=== PATIENT | male | born 1995 | race Caucasian/White ===

== ENCOUNTER 2020-04-01 18:03 | Day surgery (SDC) | payer OTHER ==
--- NOTE | 2020-04-01 18:20 | PDOC ---
Rapid Medical Evaluation Time Seen by Provider: 04/01/20 18:19 Medical Evaluation: 04/01/20 18:19 I have performed a brief in-person evaluation of this patient. The patient presents with a chief complaint of: RLQ pain today. + nausea, no fever or change in BM Pertinent physical exam findings:stable I have ordered the following:labs The patient will proceed to the ED for further evaluation. Discharge Disposition - Diagnosis RLQ abdominal pain - Referrals - Patient Instructions - Post Discharge Activity
--- NOTE | 2020-04-01 18:34 | PDOC ---
History of Present Illness - General Chief Complaint: Pain, Acute Stated Complaint: ABD PAIN/NAUSEA Time Seen by Provider: 04/01/20 18:19 - History of Present Illness Initial Comments: 04/01/20 18:33 25 y/o M w/o CM presents foe evaluation of RLQ pain x 1 d Past History - Medical History Allergies/Adverse Reactions: Allergies Allergy/AdvReac Type Severity Reaction Status Date / Time No Known Allergies Allergy Verified 04/01/20 18:59 Home Medications: Ambulatory Orders NK [No Known Home Medication] 04/01/20 COPD: No - Immunization History Immunization Up to Date: No - Psycho-Social/Smoking History Smoking History: Current every day smoker Information on smoking cessation initiated: No - Substance Abuse Hx (Audit-C & DAST Scrn) How often the patient has a drink containing alcohol: Monthly or less Number of drinks the patient has on a typical day: 1 or 2 How often the patient has six or more drinks on one occasion: Never Score: In Men: 4 or > Positive; In Women: 3 or > Positive: 1 Screen Result (Pos requires Nsg. Audit-10AR): Negative In the last yr the pt used illegal drug/Rx for NonMed reason: No Score: Yes response is considered Positive: 0 Screen Result (Positive result requires Nsg. DAST-10): Negative Review of Systems - Review of Systems Constitutional: No: Fever ABD/GI: Yes: Nausea. No: Constipated, Diarrhea, Vomiting *Physical Exam - Vital Signs Last Vital Signs Temp Pulse Resp BP Pulse Ox 98.8 F 77 20 111/75 100 04/01/20 18:17 04/01/20 18:17 04/01/20 18:17 04/01/20 18:17 04/01/20 18:17 - Physical Exam General Appearance: Yes: Nourished, Appropriately Dressed. No: Apparent Distress HEENT: positive: Normal Voice, Symmetrical Neck: positive: Supple Respiratory/Chest: positive: Normal Breath Sounds. negative: Respiratory Distress Cardiovascular: positive: Regular Rhythm Gastrointestinal/Abdominal: positive: Tender, Other (RLQ Tenderness all other areas are non tender) Musculoskeletal: positive: Normal Inspection Extremity: positive: Normal Inspection Integumentary: positive: Normal Color, Dry, Warm Neurologic: positive: medical clerical assistant II-XII NML intact, Fully Oriented, Alert ED Treatment Course - LABORATORY CBC & Chemistry Diagram: 04/01/20 18:40 04/01/20 18:38 Medical Decision Making - Medical Decision Making 04/01/20 21:12 called for admission 04/01/20 22:00 2nd call placed 04/01/20 22:06 Dr Adames will have hospitalisyt admit NPO surgery tomorrow 04/01/20 22:09 Hospitailist called for admission, Discharge - Discharge Information Problems reviewed: Yes Clinical Impression/Diagnosis: RLQ abdominal pain, Appendicitis Condition: Stable - Admission Yes - Follow up/Referral Referrals: Amber Kessler MD [Primary Care Provider] - - Patient Discharge Instructions - Post Discharge Activity
[2020-04-01 19:05] LABS: BASO % 0.1 % (0-2.0); EOS % 0.7 % (0-4.5); HEMATOCRIT 44.3 % (35.4-49); HEMOGLOBIN 14.8 GM/dL (11.7-16.9); LYMPH % 11.6 % (8-40); MCH 29.5 pg (25.7-33.7); MCHC 33.5 g/dl (32.0-35.9); MEAN PLT VOLUME 7.8 fl (7.5-11.1); MONO % 5.9 % (3.8-10.2); NEUT % 81.7 % (42.8-82.8); PLATELET COUNT 300 K/MM3 (134-434); RBC 5.04 M/mm3 (4.00-5.60); RDW 13.8 % (11.9-15.9)
[2020-04-01 19:11] LABS: PH,URINE 6.5 (5.0-8.0); URINE APPEARANCE CLEAR; URINE BILIRUBIN NEGATIVE (NEGATIVE); URINE COLOR YELLOW; URINE GLUCOSE (UA) NEGATIVE (NEGATIVE); URINE KETONE TRACE (NEGATIVE); URINE LEUK ESTERASE NEGATIVE (NEGATIVE); URINE NITRITE NEGATIVE (NEGATIVE); URINE PROTEIN NEGATIVE (NEGATIVE)
[2020-04-01 19:44] LABS: ALBUMIN 4.5 g/dl (3.4-5.0); BILIRUBIN,TOTAL 1.2 mg/dL (0.2-1); CALCIUM 9.8 mg/dL (8.5-10.1); CREATININE 0.9 mg/dL (0.55-1.3); POTASSIUM 4.4 mmol/L (3.5-5.1); TOT PROT 7.5 g/dl (6.4-8.2)
--- NOTE | 2020-04-01 20:15 | PDOC ---
*Physical Exam - Vital Signs Last Vital Signs Temp Pulse Resp BP Pulse Ox 98.8 F 77 20 111/75 100 04/01/20 18:17 04/01/20 18:17 04/01/20 18:17 04/01/20 18:17 04/01/20 18:17 ED Treatment Course - LABORATORY CBC & Chemistry Diagram: 04/01/20 18:40 04/01/20 18:38 - ADDITIONAL ORDERS Additional order review: Laboratory Results 04/01/20 04/01/20 18:40 18:38 Sodium 138 Potassium 4.4 Chloride 105 Carbon Dioxide 27 Anion Gap 6 L BUN 9.0 Creatinine 0.9 Est GFR (CKD-EPI)AfAm 137.10 Est GFR (CKD-EPI)NonAf 118.29 Random Glucose 92 Calcium 9.8 Total Bilirubin 1.2 H AST 15 ALT 26 Alkaline Phosphatase 66 Total Protein 7.5 Albumin 4.5 Lipase 47 L Urine Color Yellow Urine Appearance Clear Urine pH 6.5 Ur Specific [place] 1.029 Urine Protein Negative Urine Glucose (UA) Negative Urine Ketones Trace H Urine Blood Negative Urine Nitrite Negative Urine Bilirubin Negative Urine Urobilinogen 1.0 Ur Leukocyte Esterase Negative 04/01/20 18:40 RBC 5.04 MCV 88.0 MCHC 33.5 RDW 13.8 MPV 7.8 Neutrophils % 81.7 Lymphocytes % 11.6 Monocytes % 5.9 Eosinophils % 0.7 Basophils % 0.1 Medical Decision Making - Medical Decision Making 04/01/20 20:09 Patient seen by the advanced practice provider under my supervision. Ancillary testing reviewed as necessary. I agree with plan as outlined by the advanced practice provider. Discharge - Discharge Information Problems reviewed: Yes Clinical Impression/Diagnosis: RLQ abdominal pain, Appendicitis Condition: Stable - Follow up/Referral - Patient Discharge Instructions - Post Discharge Activity
[2020-04-01] MEDS ORDERED: ACETAMINOPHEN 1000 MG/100 ML VIAL (NON FORMULARY) IVPB ONE (22:27)
--- NOTE | 2020-04-01 22:27 | HP ---
CHIEF COMPLAINT: RLQ abd pain PCP: Elzbieta HISTORY OF PRESENT ILLNESS: Knvg Rivera is a 25 yr old M, no significant medical condition presented to ED with RLQ abd pain that started today with associated nausea. pt denies vomiting, fever, chills, sob, chest pain, headache, dizziness, diarrhea. ER course was notable for: (1) CT abd appendicitis (2) WBC 16 (3) Recent Travel: none PAST MEDICAL HISTORY: none PAST SURGICAL HISTORY: Social History: Smoking:denies tobacco use Alcohol:denies Drugs: occasional weed Allergies No Known Allergies Allergy (Verified 04/01/20 18:59) HOME MEDICATIONS: Home Medications Medication Instructions Recorded NK [No Known Home Medication] 04/01/20 REVIEW OF SYSTEMS CONSTITUTIONAL: Absent: fever, chills, diaphoresis, generalized weakness, malaise, loss of appetite, weight change HEENT: Absent: rhinorrhea, nasal congestion, throat pain, throat swelling, difficulty swallowing, mouth swelling, ear pain, eye pain, visual changes CARDIOVASCULAR: Absent: chest pain, syncope, palpitations, irregular heart rate, lightheadedness, peripheral edema RESPIRATORY: Absent: cough, shortness of breath, dyspnea with exertion, orthopnea, wheezing, stridor, hemoptysis GASTROINTESTINAL:+ RLQ abd pain, +nausea. Absent: abdominal distension, vomiting, diarrhea, constipation, melena, hematochezia GENITOURINARY: Absent: dysuria, frequency, urgency, hesitancy, hematuria, flank pain, genital pain MUSCULOSKELETAL: Absent: myalgia, arthralgia, joint swelling, back pain, neck pain SKIN: Absent: rash, itching, pallor HEMATOLOGIC/IMMUNOLOGIC: Absent: easy bleeding, easy bruising, lymphadenopathy, frequent infections ENDOCRINE: Absent: unexplained weight gain, unexplained weight loss, heat intolerance, cold intolerance NEUROLOGIC: Absent: headache, focal weakness or paresthesias, dizziness, unsteady gait, seizure, mental status changes, bladder or bowel incontinence PSYCHIATRIC: Absent: anxiety, depression, suicidal or homicidal ideation, hallucinations. PHYSICAL EXAMINATION Vital Signs - 24 hr 04/01/20 18:17 Temperature 98.8 F Pulse Rate 77 Respiratory 20 Rate Blood Pressure 111/75 O2 Sat by Pulse 100 Oximetry (%) GENERAL: Awake, alert, and fully oriented, in no acute distress. HEAD: Normal with no signs of trauma. EYES: Pupils equal, round and reactive to light, extraocular movements intact, sclera anicteric, conjunctiva clear. No lid lag. EARS, NOSE, THROAT: Ears normal, nares patent, oropharynx clear without exudates. Moist mucous membranes. NECK: Normal range of motion, supple without lymphadenopathy, JVD, or masses. LUNGS: Breath sounds equal, clear to auscultation bilaterally. No wheezes, and no crackles. No accessory muscle use. HEART: Regular rate and rhythm, normal S1 and S2 without murmur, rub or gallop. ABDOMEN: Soft, nontender, not distended, normoactive bowel sounds, no guarding, no rebound, no masses. No hepatomegaly or splenomegaly. MUSCULOSKELETAL: Normal range of motion at all joints. No bony deformities or tenderness. No CVA tenderness. UPPER EXTREMITIES: 2+ pulses, warm, well-perfused. No cyanosis. No clubbing. No peripheral edema. LOWER EXTREMITIES: 2+ pulses, warm, well-perfused. No calf tenderness. No peripheral edema. NEUROLOGICAL: Cranial nerves II-XII intact. Normal speech. Normal gait. PSYCHIATRIC: Cooperative. Good eye contact. Appropriate mood and affect. SKIN: Warm, dry, normal turgor, no rashes or lesions noted, normal capillary refill. Laboratory Results - last 24 hr 04/01/20 04/01/20 04/01/20 18:38 18:40 18:40 WBC 16.0 H RBC 5.04 Hgb 14.8 Hct 44.3 MCV 88.0 MCH 29.5 MCHC 33.5 RDW 13.8 Plt Count 300 MPV 7.8 Absolute Neuts (auto) 13.1 H Neutrophils % 81.7 Lymphocytes % 11.6 Monocytes % 5.9 Eosinophils % 0.7 Basophils % 0.1 Nucleated RBC % 0 Sodium 138 Potassium 4.4 Chloride 105 Carbon Dioxide 27 Anion Gap 6 L BUN 9.0 Creatinine 0.9 Est GFR (CKD-EPI)AfAm 137.10 Est GFR (CKD-EPI)NonAf 118.29 Random Glucose 92 Calcium 9.8 Total Bilirubin 1.2 H AST 15 ALT 26 Alkaline Phosphatase 66 Total Protein 7.5 Albumin 4.5 Lipase 47 L Urine Color Yellow Urine Appearance Clear Urine pH 6.5 Ur Specific [place] 1.029 Urine Protein Negative Urine Glucose (UA) Negative Urine Ketones Trace H Urine Blood Negative Urine Nitrite Negative Urine Bilirubin Negative Urine Urobilinogen 1.0 Ur Leukocyte Esterase Negative Blood Type Antibody Screen 04/01/20 18:40 WBC RBC Hgb Hct MCV MCH MCHC RDW Plt Count MPV Absolute Neuts (auto) Neutrophils % Lymphocytes % Monocytes % Eosinophils % Basophils % Nucleated RBC % Sodium Potassium Chloride Carbon Dioxide Anion Gap BUN Creatinine Est GFR (CKD-EPI)AfAm Est GFR (CKD-EPI)NonAf Random Glucose Calcium Total Bilirubin AST ALT Alkaline Phosphatase Total Protein Albumin Lipase Urine Color Urine Appearance Urine pH Ur Specific [place] Urine Protein Urine Glucose (UA) Urine Ketones Urine Blood Urine Nitrite Urine Bilirubin Urine Urobilinogen Ur Leukocyte Esterase Blood Type B POSITIVE Antibody Screen Negative ASSESSMENT/PLAN: Kvng Rivera is a 25 yr old M, no medical condition admitted for Admitting Diagnosis Appendicitis #Appendicitis -WBC 16 -CT abd/pelvis- appendicitis w/associated intraluminal appendicloth -will give one dose zosyn -IVF -NPO -pain mgt, dilaudid 1mg q 6hrs prn -Surgery paged in ED- sx for tomorrow -PT/INR in AM -COVID swabbed in ED Full Code Dispo: requires in patient treatment Visit type - Emergency Visit Emergency Visit: Yes Care time: The patient presented to the Emergency Department on the above date and was hospitalized for further evaluation of their emergent condition. - New Patient This patient is new to me today: Yes Date on this admission: 04/01/20 - Critical Care Critical Care patient: No
[2020-04-01] MEDS: SODIUM CHLORIDE 1,000 ML IV SCH (22:36)
[2020-04-01] MEDS ORDERED: HYDROmorphone HCl 2 MG/ML VIAL IVPUSH PRN (22:38)
[2020-04-01] MEDS ORDERED: PIPERACILLIN/TAZOB 3.375 GM 3.375 GM in DEXTROSE 5%-WATER - 50 ML IVPB ONE (22:40)
[2020-04-01] MEDS ORDERED: ONDANSETRON 4 MG/2 ML VIAL IVPUSH PRN (22:42)
[2020-04-01] MEDS ORDERED: ACETAMINOPHEN INJECTION 100 ML IVPB ONE (23:01)
[2020-04-02] MEDS ORDERED: PIPERACILLIN/TAZOBACTAM 3.375 GM VIAL IVPB ONE ×3 (00:25→17:02)
[2020-04-02] MEDS ORDERED: DEXTROSE 5%-WATER - 50 ML IVPB ONE ×3 (00:26→17:03)
[2020-04-02 00:38] VITALS: BMI 29.0
[2020-04-02 07:21] LABS: BASO % 0.1 % (0-2.0); EOS % 1.7 % (0-4.5); HEMATOCRIT 42.7 % (35.4-49); HEMOGLOBIN 14.5 GM/dL (11.7-16.9); LYMPH % 21.4 % (8-40); MCHC 34.1 g/dl (32.0-35.9); MEAN PLT VOLUME 8.2 fl (7.5-11.1); MONO % 9.2 % (3.8-10.2); NEUT % 67.6 % (42.8-82.8); PLATELET COUNT 283 K/MM3 (134-434); RBC 4.85 M/mm3 (4.00-5.60); WHITE BLOOD COUNT 9.4 K/mm3 (4.0-10.0)
[2020-04-02 07:38] LABS: BLOOD UREA NITROGEN 8.2 mg/dL (7-18); CREATININE 0.8 mg/dL (0.55-1.3); POTASSIUM 3.9 mmol/L (3.5-5.1)
[2020-04-02 07:39] LABS: ALBUMIN 3.7 g/dl (3.4-5.0); BILIRUBIN,TOTAL 2.2 mg/dL (0.2-1); MAGNESIUM 2.3 mg/dL (1.8-2.4); TOT PROT 6.3 g/dl (6.4-8.2)
[2020-04-02 07:44] LABS: INR 1.03 (0.83-1.09); PROTHROMBIN TIME (PATIENT) 12.2 SEC (9.7-13.0)
[2020-04-02] MEDS ORDERED: PIPERACILLIN/TAZOB 3.375 GM 3.375 GM in DEXTROSE 5%-WATER - 50 ML IVPB ONE (08:42)
--- NOTE | 2020-04-02 09:50 | PN ---
Progress Note (short form) - Note Progress Note: surgery 25m admitted with uncompliated appendicitis. wbc normalized with abx and no fever. awaiting covid results sent yesterday. will proceed with surgery vs medical management pending results.
--- NOTE | 2020-04-02 10:11 | PN ---
Physical Exam: SUBJECTIVE: Patient seen and examined at the bedside. tells me that his RLQ abdominal pain began yesterday. currently denies any nausea/vomiting. RLQ pain now controlled on pain medications. 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 He denies any other medical history, and does not take ASA, only tylenol for pain prn OBJECTIVE: Patient is a 25 year old male with no significant past medical history who comes to the ED on 04/01/2020 with RLQ abd pain that started 04/01/[address] scan shows acute appendicitis with intraluminal appendicolith. Surgery following. covid 19 pending. covid status: covid 19 pending. patient is asymptomatic Vital Signs Period Temp Pulse Resp BP Sys/Michel Pulse Ox Last 24 Hr 98 F-99 F 70-77 16-20 105-122/64-75 100-100 GENERAL: The patient is awake, alert, and fully oriented, in no acute distress. HEAD: Normal with no signs of trauma. EYES: PERRL, extraocular movements intact, sclera anicteric, conjunctiva clear. No ptosis. ENT: Ears normal, nares patent, oropharynx clear without exudates, moist mucous membranes. NECK: Trachea midline, full range of motion, supple. LUNGS: Breath sounds equal, clear to auscultation bilaterally HEART: Regular rate and rhythm ABDOMEN: Soft, nontender, nondistended, normoactive bowel sounds EXTREMITIES: 2+ pulses, warm, well-perfused, no edema. NEUROLOGICAL: Normal speech, gait not observed. PSYCH: Normal mood, normal affect. SKIN: Warm, dry, normal turgor, no rashes or lesions noted Laboratory Results - last 24 hr 04/01/20 04/01/20 04/01/20 18:38 18:40 18:40 WBC 16.0 H RBC 5.04 Hgb 14.8 Hct 44.3 MCV 88.0 MCH 29.5 MCHC 33.5 RDW 13.8 Plt Count 300 MPV 7.8 Absolute Neuts (auto) 13.1 H Neutrophils % 81.7 Lymphocytes % 11.6 Monocytes % 5.9 Eosinophils % 0.7 Basophils % 0.1 Nucleated RBC % 0 PT with INR INR Sodium 138 Potassium 4.4 Chloride 105 Carbon Dioxide 27 Anion Gap 6 L BUN 9.0 Creatinine 0.9 Est GFR (CKD-EPI)AfAm 137.10 Est GFR (CKD-EPI)NonAf 118.29 Random Glucose 92 Calcium 9.8 Magnesium Total Bilirubin 1.2 H AST 15 ALT 26 Alkaline Phosphatase 66 Total Protein 7.5 Albumin 4.5 Lipase 47 L Urine Color Yellow Urine Appearance Clear Urine pH 6.5 Ur Specific [place] 1.029 Urine Protein Negative Urine Glucose (UA) Negative Urine Ketones Trace H Urine Blood Negative Urine Nitrite Negative Urine Bilirubin Negative Urine Urobilinogen 1.0 Ur Leukocyte Esterase Negative Blood Type Antibody Screen 04/01/20 04/02/20 04/02/20 18:40 06:35 06:35 WBC 9.4 RBC 4.85 Hgb 14.5 Hct 42.7 MCV 88.0 MCH 30.0 MCHC 34.1 RDW 14.0 Plt Count 283 MPV 8.2 Absolute Neuts (auto) 6.4 Neutrophils % 67.6 Lymphocytes % 21.4 D Monocytes % 9.2 Eosinophils % 1.7 D Basophils % 0.1 Nucleated RBC % 0 PT with INR 12.20 INR 1.03 Sodium Potassium Chloride Carbon Dioxide Anion Gap BUN Creatinine Est GFR (CKD-EPI)AfAm Est GFR (CKD-EPI)NonAf Random Glucose Calcium Magnesium Total Bilirubin AST ALT Alkaline Phosphatase Total Protein Albumin Lipase Urine Color Urine Appearance Urine pH Ur Specific [place] Urine Protein Urine Glucose (UA) Urine Ketones Urine Blood Urine Nitrite Urine Bilirubin Urine Urobilinogen Ur Leukocyte Esterase Blood Type B POSITIVE Antibody Screen Negative 04/02/20 06:35 WBC RBC Hgb Hct MCV MCH MCHC RDW Plt Count MPV Absolute Neuts (auto) Neutrophils % Lymphocytes % Monocytes % Eosinophils % Basophils % Nucleated RBC % PT with INR INR Sodium 141 Potassium 3.9 Chloride 108 H Carbon Dioxide 25 Anion Gap 7 L BUN 8.2 Creatinine 0.8 Est GFR (CKD-EPI)AfAm 143.90 Est GFR (CKD-EPI)NonAf 124.16 Random Glucose 88 Calcium 9.0 Magnesium 2.3 Total Bilirubin 2.2 H AST 12 L ALT 21 Alkaline Phosphatase 59 Total Protein 6.3 L Albumin 3.7 Lipase Urine Color Urine Appearance Urine pH Ur Specific [place] Urine Protein Urine Glucose (UA) Urine Ketones Urine Blood Urine Nitrite Urine Bilirubin Urine Urobilinogen Ur Leukocyte Esterase Blood Type Antibody Screen Active Medications Generic Name Dose Route Start Last Admin Trade Name Freq PRN Reason Stop Dose Admin Hydromorphone HCl 1 mg 04/01/20 22:38 04/02/20 06:19 Dilaudid Vial - IVPUSH 1 mg Q6H PRN Administration PAIN LEVEL 7 - 10 Sodium Chloride 1,000 mls @ 75 mls/hr 04/01/20 22:15 04/01/20 22:36 Normal Saline - IV 75 mls/hr ASDIR RAF Administration Ondansetron HCl 4 mg 04/01/20 22:42 Zofran Injection IVPUSH Q4H PRN NAUSEA AND/OR VOMITING ASSESSMENT/PLAN: Problem List - Problems (1) Appendicitis Assessment/Plan: per CT scan, surgery following Code(s): K37 - UNSPECIFIED APPENDICITIS (2) RLQ abdominal pain Assessment/Plan: in the setting of acute appendicitis. for possible surgical intervention today on dialudid, bowel rest. maintain NPO status. Code(s): R10.31 - RIGHT LOWER QUADRANT PAIN (3) COVID-19 Assessment/Plan: pending, no symptoms and no known sick contacts Code(s): U07.1 - COVID POSITIVE (4) DVT prophylaxis Assessment/Plan: SCD incentive spirometer early ambulation protonix Code(s): Z29.9 - ENCOUNTER FOR PROPHYLACTIC MEASURES, UNSPECIFIED Visit type - Emergency Visit Emergency Visit: Yes ED Registration Date: 04/02/20 Care time: The patient presented to the Emergency Department on the above date and was hospitalized for further evaluation of their emergent condition. - New Patient This patient is new to me today: Yes Date on this admission: 04/02/20 - Critical Care Critical Care patient: No - Discharge Referral Referred to [facility] Med P.C.: No
--- NOTE | 2020-04-02 10:36 | CON.ID ---
Consult Consult Specialty:: infectious diseases Referred by:: Myriam Reason for Consultation:: ac appendicitis - History of Present Illness Chief Complaint: abd pain History of Present Illness: 25 yr old M, no significant medical condition admitted with RLQ abd pain that started today with associated nausea. pt denies vomiting, fever, chills, sob, chest pain, headache, dizziness, diarrhea. was worked up and found to have ac appendicitis surgery on board patient sometimes smokes hookah and smokes cigarettes - History Source History Provided By: Patient Limitations to Obtaining History: No Limitations - Smoking History Smoking history: Current every day smoker Have you smoked in the past 12 months: Yes Home Medications - Allergies Allergies/Adverse Reactions: Allergies Allergy/AdvReac Type Severity Reaction Status Date / Time No Known Allergies Allergy Verified 04/01/20 18:59 - Home Medications Home Medications: Ambulatory Orders NK [No Known Home Medication] 04/01/20 Review of Systems - Review of Systems Constitutional: reports: No Symptoms Eyes: reports: No Symptoms HENT: reports: No Symptoms Neck: reports: No Symptoms Cardiovascular: reports: No Symptoms Respiratory: reports: No Symptoms Gastrointestinal: reports: Abdominal Pain Genitourinary: reports: No Symptoms Integumentary: reports: No Symptoms Neurological: reports: No Symptoms Endocrine: reports: No Symptoms Hematology/Lymphatic: reports: No Symptoms Psychiatric: reports: No Symptoms Physical Exam Vital Signs: Vital Signs Temperature 98 F 04/02/20 05:56 Pulse Rate 73 04/02/20 05:56 Respiratory Rate 20 04/02/20 05:56 Blood Pressure 105/64 04/02/20 05:56 O2 Sat by Pulse Oximetry (%) 100 04/02/20 00:41 Constitutional: Yes: Calm, Mild Distress Eyes: Yes: Conjunctiva Clear HENT: Yes: Atraumatic Neck: Yes: Supple, Trachea Midline Cardiovascular: Yes: Regular Rate and Rhythm Respiratory: Yes: Regular, CTA Bilaterally Gastrointestinal: Yes: Hypoactive Bowel Sounds, Tenderness Musculoskeletal: Yes: WNL Extremities: Yes: WNL Neurological: Yes: Alert, Oriented Psychiatric: Yes: Alert, Oriented Labs: CBC, BMP 04/02/20 06:35 04/02/20 06:35 Imaging - Results Cat Scan: Report Reviewed, Image Reviewed Assessment/Plan this patient with no medical problems now coming with ac appendicits surgery on board we will continue zosyn monitor for fevers and wbc rest as per the team
[2020-04-02] MEDS: PIPERACILLIN/TAZOB 3.375 GM 3.375 GM in DEXTROSE 5%-WATER - 50 ML IVPB SCH (18:25)
--- NOTE | 2020-04-02 19:59 | CONS ---
DATE OF CONSULTATION: 04/02/2020 REASON FOR CONSULTATION: Acute appendicitis. REASON FOR CONSULTATION: This is an emergency consultation requested by the emergency room physician. BRIEF HISTORY: This is a 25-year-old male without significant past medical history presents with 1-day history of right lower quadrant abdominal pain. He presented to the [facility] emergency room where a CAT scan of his abdomen and pelvis which was consistent with uncomplicated acute appendicitis. COVID testing was sent on April 01. He was admitted to the hospital, placed on intravenous Zosyn antibiotic. Overnight his white blood cell count returned to normal and his symptoms significantly improved, and he has had no fever. Plans are being made for surgery pending his COVID status. PAST MEDICAL HISTORY: Negative. 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 SOCIAL HISTORY: Negative for alcohol. Negative for tobacco. ALLERGIES: No known drug allergies. FAMILY HISTORY: Noncontributory. REVIEW OF SYSTEMS: General: Denies fatigue or malaise. Cardiac: Denies chest pain or palpitations. Respiratory: Denies shortness of breath or wheeze. Gastrointestinal: Currently no nausea, no vomiting, no abdominal pain, no diarrhea, no blood in his stool. Genitourinary: Denies dysuria. Musculoskeletal: Denies joint pain. Psychiatric: Denies anxiety, depression, or hearing voices. PHYSICAL EXAMINATION: General: This is an overweight 25-year-old male in no distress. Vital signs: He is afebrile. His vital signs are stable. HEENT: Head is normocephalic. Sclerae anicteric. Neck: Supple. Chest: Clear. Abdomen: Soft. He has mild right lower quadrant tenderness without rebound or guarding. Extremities: No edema. Skin: He has a well-healed surgical scar in the lower midline. LABORATORY: Review of his laboratory: His white blood cell count is 9.4 without a shift. His chemistries are unremarkable with a mildly elevated total bilirubin. His COVID test from April 01 is pending as of 6:55 p.m. at the time of this dictation. IMAGING: As stated in HPI. ASSESSMENT: This is a 25-year-old male with right lower quadrant pain, right lower quadrant tenderness, resolving leukocytosis on Zosyn antibiotic, with CAT scan evidence of uncomplicated appendicitis with an appendicolith located within the appendix. Patient currently is being managed medically with good response. Ideally would proceed with surgical management; however, the COVID status needs to be ascertained, as surgery in the setting of COVID can lead to respiratory failure and thromboembolic events leading to . At this point, would continue medical management. If the COVID test comes back negative, would proceed with surgical management at that time. If it is positive, would continue medical management with plans for an interval appendectomy. Risks and benefits of surgery have been explained to patient in detail. These are including but not limited to possibility of conversion to open, possible injury to viscera or bladder, possibility of blood loss requiring blood transfusion, possible future obstruction, possible future hernia, plus a multitude of medical risks including but not limited to cardiac, neurologic, pulmonary, and vascular complications, even . Patient understands these risks, and he is agreeable to surgery if his COVID test is negative. He also understands there is a possibility of a false negative COVID test as well. DO GIGI [id number]
[2020-04-03] MEDS ORDERED: PIPERACILLIN/TAZOBACTAM 3.375 GM VIAL IVPB ONE ×3 (00:53→17:31)
[2020-04-03] MEDS ORDERED: DEXTROSE 5%-WATER - 50 ML IVPB ONE ×3 (00:54→17:31)
[2020-04-03] MEDS: SODIUM CHLORIDE 1,000 ML IV SCH ×3 (00:58→17:44)
[2020-04-03] MEDS: PIPERACILLIN/TAZOB 3.375 GM 3.375 GM in DEXTROSE 5%-WATER - 50 ML IVPB SCH ×3 (00:59→17:42)
[2020-04-03 07:17] LABS: BASO % 0.1 % (0-2.0); EOS % 1.4 % (0-4.5); HEMATOCRIT 42.5 % (35.4-49); HEMOGLOBIN 14.4 GM/dL (11.7-16.9); LYMPH % 21.1 % (8-40); MCH 29.8 pg (25.7-33.7); MCHC 33.9 g/dl (32.0-35.9); MEAN PLT VOLUME 8.2 fl (7.5-11.1); MONO % 6.1 % (3.8-10.2); NEUT % 71.3 % (42.8-82.8); PLATELET COUNT 273 K/MM3 (134-434); RBC 4.83 M/mm3 (4.00-5.60); RDW 14.2 % (11.9-15.9)
[2020-04-03 07:42] LABS: ALBUMIN 3.7 g/dl (3.4-5.0); CALCIUM 8.8 mg/dL (8.5-10.1); CREATININE 0.8 mg/dL (0.55-1.3); MAGNESIUM 2.4 mg/dL (1.8-2.4); POTASSIUM 4.1 mmol/L (3.5-5.1)
[2020-04-03 07:43] LABS: TOT PROT 6.6 g/dl (6.4-8.2)
--- NOTE | 2020-04-03 11:26 | PN ---
Physical Exam: SUBJECTIVE: Patient seen and examined at the bedside. RLQ pain improved, mild tenderness now. OBJECTIVE: Patient is a 25 year old male with no significant past medical history who comes to the ED on 04/01/2020 with RLQ abd pain that started 04/01/[address] scan shows acute appendicitis with intraluminal appendicolith. Surgery following. covid 19 pending. covid status: covid 19 pending. patient is asymptomatic Vital Signs Period Temp Pulse Resp BP Sys/Michel Pulse Ox Last 24 Hr 97.4 F-98.5 F 67-75 18-20 106-120/51-60 98-100 GENERAL: The patient is awake, alert, and fully oriented, in no acute distress. HEAD: Normal with no signs of trauma. EYES: PERRL, extraocular movements intact, sclera anicteric, conjunctiva clear. No ptosis. ENT: Ears normal, nares patent, oropharynx clear without exudates, moist mucous membranes. NECK: Trachea midline, full range of motion, supple. LUNGS: Breath sounds equal, clear to auscultation bilaterally HEART: Regular rate and rhythm ABDOMEN: Soft, nontender, nondistended, normoactive bowel sounds EXTREMITIES: 2+ pulses, warm, well-perfused, no edema. NEUROLOGICAL: Normal speech, gait not observed. PSYCH: Normal mood, normal affect. SKIN: Warm, dry, normal turgor, no rashes or lesions noted Laboratory Results - last 24 hr 04/03/20 04/03/20 06:30 06:30 WBC 8.0 RBC 4.83 Hgb 14.4 Hct 42.5 MCV 88.0 MCH 29.8 MCHC 33.9 RDW 14.2 Plt Count 273 MPV 8.2 Absolute Neuts (auto) 5.7 Neutrophils % 71.3 Lymphocytes % 21.1 Monocytes % 6.1 Eosinophils % 1.4 Basophils % 0.1 Nucleated RBC % 0 Sodium 140 Potassium 4.1 Chloride 109 H Carbon Dioxide 23 Anion Gap 8 BUN 9.0 Creatinine 0.8 Est GFR (CKD-EPI)AfAm 143.90 Est GFR (CKD-EPI)NonAf 124.16 Random Glucose 63 L Calcium 8.8 Magnesium 2.4 Total Bilirubin 2.0 H AST 13 L ALT 20 Alkaline Phosphatase 56 Total Protein 6.6 Albumin 3.7 Active Medications Generic Name Dose Route Start Last Admin Trade Name Freq PRN Reason Stop Dose Admin Hydromorphone HCl 1 mg 04/01/20 22:38 04/02/20 06:19 Dilaudid Vial - IVPUSH 1 mg Q6H PRN Administration PAIN LEVEL 7 - 10 Sodium Chloride 1,000 mls @ 75 mls/hr 04/01/20 22:15 04/03/20 08:59 Normal Saline - IV 75 mls/hr ASDIR RAF Administration Piperacillin Sod/Tazobactam 50 mls @ 100 mls/hr 04/02/20 18:00 04/03/20 08:59 Sod 3.375 gm/ Dextrose IVPB 100 mls/hr Q8H-IV RAF Administration Protocol Ondansetron HCl 4 mg 04/01/20 22:42 Zofran Injection IVPUSH Q4H PRN NAUSEA AND/OR VOMITING ASSESSMENT/PLAN: Problem List - Problems (1) Appendicitis Assessment/Plan: per CT scan, surgery following possible surgery pending covid 19 results Code(s): K37 - UNSPECIFIED APPENDICITIS (2) RLQ abdominal pain Assessment/Plan: improved. in the setting of acute appendicitis. for possible surgical intervention today on dialudid, bowel rest. maintain NPO status. Code(s): R10.31 - RIGHT LOWER QUADRANT PAIN (3) COVID-19 Assessment/Plan: pending, no symptoms and no known sick contacts Code(s): U07.1 - COVID POSITIVE (4) DVT prophylaxis Assessment/Plan: SCD incentive spirometer early ambulation protonix Code(s): Z29.9 - ENCOUNTER FOR PROPHYLACTIC MEASURES, UNSPECIFIED (5) Leukocytosis Assessment/Plan: resolved afebirle. on zosyn Code(s): D72.829 - ELEVATED WHITE BLOOD CELL COUNT, UNSPECIFIED Visit type - Emergency Visit Emergency Visit: Yes ED Registration Date: 04/02/20 Care time: The patient presented to the Emergency Department on the above date and was hospitalized for further evaluation of their emergent condition. - New Patient This patient is new to me today: No - Critical Care Critical Care patient: No - Discharge Referral Referred to [facility] No
[2020-04-03] MEDS ORDERED: PANTOPRAZOLE SODIUM 40 MG in SODIUM CHLORIDE 100 ML IVPB SCH (11:30)
[2020-04-03] MEDS ORDERED: PANTOPRAZOLE SODIUM 40 MG VIAL IVPUSH SCH (11:45)
[2020-04-03] MEDS ORDERED: ONDANSETRON 4 MG/2 ML VIAL IVPUSH PRN ×2 (14:21→17:19)
[2020-04-03] MEDS ORDERED: DEXAMETHASONE SOD PHOSPHATE 4 MG/1 ML VIAL ONE (14:23)
[2020-04-03] MEDS ORDERED: MIDAZOLAM HCL 2 MG/2 ML SINGLE DOSE VIAL ONE ×2 (14:24→14:31)
[2020-04-03] MEDS ORDERED: EPHEDRINE SULFATE/0.9% NACL/PF 50 MG/10 ML SYRINGE NR ONE (14:24)
[2020-04-03] MEDS ORDERED: SUCCINYLCHOLINE CHLORIDE 200 MG/10 ML SYRINGE ONE (14:24)
[2020-04-03] MEDS ORDERED: ROCURONIUM BROMIDE 50 MG/5 ML SYRINGE ONE (14:24)
[2020-04-03] MEDS ORDERED: PROPOFOL 20 ML ONE ×2 (14:24→15:31)
[2020-04-03] MEDS ORDERED: LIDOCAINE HCL/PF 2% SDV 5ML VIAL ONE (14:25)
[2020-04-03] MEDS ORDERED: LACTATED RINGERS SOLUTION 1,000 ML IV SCH (14:30)
--- NOTE | 2020-04-03 14:39 | OP ---
Operative Note - Note: Operative Date: 04/03/20 Pre-Operative Diagnosis: acute appendicitis Operation: laparoscopic appendectomy, lavage Findings: inflamed, non perforated appendix Post-Operative Diagnosis: Same as Pre-op Surgeon: Jas Pierson Anesthesiologist/CHICKEN CLEANER: Vi Tovar Specimens Removed: appendix Estimated Blood Loss (mls): 10 Operative Report Dictated: Yes
[2020-04-03] MEDS ORDERED: morphine SULFATE 4 MG/ML VIAL IVPB PRN (14:40)
[2020-04-03] MEDS ORDERED: oxyCODONE HCL 5 MG TABLET PO PRN (14:40)
[2020-04-03] MEDS ORDERED: NEOSTIGMINE METHYLSULFATE 0.5 MG/ML - 10 ML MDV ONE (15:04)
[2020-04-03] MEDS ORDERED: GLYCOPYRROLATE 0.2 MG/1 ML VIAL ONE (15:04)
--- NOTE | 2020-04-03 15:04 | PN ---
Progress Note, Physician History of Present Illness: stable post op doing well no issues - Current Medication List Current Medications: Active Medications Fentanyl (Sublimaze Injection -) 25 mcg IVPUSH [id number] PRN PRN Reason: PAIN-PACU ORDER X 4 DOSES ONLY Stop: 04/04/20 14:20 Fentanyl (Sublimaze Injection -) 50 mcg IVPUSH [id number] PRN PRN Reason: PAIN-PACU ORDER X 4 DOSES ONLY Stop: 04/04/20 14:20 Hydromorphone HCl (Dilaudid Vial -) 1 mg IVPUSH Q6H PRN PRN Reason: PAIN LEVEL 7 - 10 Last Admin: 04/02/20 06:19 Dose: 1 mg Documented by: Sodium Chloride (Normal Saline -) 1,000 mls @ 75 mls/hr IV ASDIR RAF Last Admin: 04/03/20 08:59 Dose: 75 mls/hr Documented by: Piperacillin Sod/Tazobactam (Sod 3.375 gm/ Dextrose) 50 mls @ 100 mls/hr IVPB Q8H-IV RAF; Protocol Last Admin: 04/03/20 08:59 Dose: 100 mls/hr Documented by: Lactated Ringer's (Lactated Ringers Solution) 1,000 mls @ 75 mls/hr IV ASDIR RAF Morphine Sulfate (Morphine Injection -) 8 mg IVPB Q3H PRN PRN Reason: PAIN LEVEL 7 - 10 Ondansetron HCl (Zofran Injection) 4 mg IVPUSH Q4H PRN PRN Reason: NAUSEA AND/OR VOMITING Ondansetron HCl (Zofran Injection) 4 mg IVPUSH Q6H PRN PRN Reason: NAUSEA AND/OR VOMITING Stop: 04/04/20 14:20 Oxycodone HCl (Roxicodone -) 7.5 mg PO Q4H PRN PRN Reason: PAIN LEVEL 4 - 6 Pantoprazole Sodium (Protonix Iv) 40 mg IVPUSH DAILY [facility] Last Admin: 04/03/20 12:11 Dose: 40 mg Documented by: - Objective Vital Signs: Vital Signs Temperature 98 F 04/03/20 13:16 Pulse Rate 68 04/03/20 13:16 Respiratory Rate 20 04/03/20 13:16 Blood Pressure 145/80 04/03/20 13:16 O2 Sat by Pulse Oximetry (%) 98 04/03/20 09:00 Constitutional: Yes: No Distress, Calm Cardiovascular: Yes: S1, S2 Respiratory: Yes: Regular, CTA Bilaterally Gastrointestinal: Yes: Normal Bowel Sounds, Soft Musculoskeletal: Yes: WNL Extremities: Yes: WNL Wound/Incision: Yes: Clean/Dry Neurological: Yes: Other Labs: CBC, BMP 04/03/20 06:30 04/03/20 06:30 INR, PTT INR 1.03 (0.83-1.09) 04/02/20 06:35 Assessment/Plan Problem List - Problems (1) Appendicitis Code(s): K37 - UNSPECIFIED APPENDICITIS (2) RLQ abdominal pain Code(s): R10.31 - RIGHT LOWER QUADRANT PAIN (3) COVID-19 Code(s): U07.1 - COVID POSITIVE (5) Leukocytosis Code(s): D72.829 - ELEVATED WHITE BLOOD CELL COUNT, UNSPECIFIED post op stable will continue abx monitor wbc once stable will deescalte op findings noted
[2020-04-03] MEDS ORDERED: KETOROLAC TROMETHAMINE 30 MG/1 ML VIAL ONE (15:16)
--- NOTE | 2020-04-03 15:47 | PN ---
Progress Note (short form) - Note Progress Note: surgery s/p laparoscopic appendectomy. can likely be discharged tomorrow in morning off abx if tolerating liquids, ambulating, and voiding. no lifting for 2 weeks. ok to shower. regular diet at home. f/u in 2 weeks [phone]
[2020-04-04] MEDS ORDERED: PIPERACILLIN/TAZOBACTAM 3.375 GM VIAL IVPB ONE ×2 (02:33→09:32)
[2020-04-04] MEDS ORDERED: DEXTROSE 5%-WATER - 50 ML IVPB ONE ×2 (02:33→09:33)
[2020-04-04] MEDS: PIPERACILLIN/TAZOB 3.375 GM 3.375 GM in DEXTROSE 5%-WATER - 50 ML IVPB SCH ×2 (02:53→09:40)
[2020-04-04] MEDS: SODIUM CHLORIDE 1,000 ML IV SCH (03:05)
[2020-04-04 08:19] LABS: BASO % 0.1 % (0-2.0); HEMOGLOBIN 14.3 GM/dL (11.7-16.9); LYMPH % 16.9 % (8-40); MCH 29.5 pg (25.7-33.7); MCHC 34.1 g/dl (32.0-35.9); MEAN CELL VOLUME 86.4 fl (80-96); MEAN PLT VOLUME 8.1 fl (7.5-11.1); MONO % 4.8 % (3.8-10.2); NEUT % 78.2 % (42.8-82.8); PLATELET COUNT 297 K/MM3 (134-434); RBC 4.86 M/mm3 (4.00-5.60); RDW 13.9 % (11.9-15.9); WHITE BLOOD COUNT 9.5 K/mm3 (4.0-10.0)
[2020-04-04 08:47] LABS: ALBUMIN 3.4 g/dl (3.4-5.0); BILIRUBIN,TOTAL 1.2 mg/dL (0.2-1); BLOOD UREA NITROGEN 6.8 mg/dL (7-18); CALCIUM 8.9 mg/dL (8.5-10.1); CREATININE 0.8 mg/dL (0.55-1.3); MAGNESIUM 2.2 mg/dL (1.8-2.4); TOT PROT 6.4 g/dl (6.4-8.2)
[2020-04-04] MEDS ORDERED: PT OWN MED DRAWER 7, Y5N ONE (09:32)
[2020-04-04] MEDS ORDERED: PANTOPRAZOLE SODIUM 40 MG VIAL IVPUSH SCH (10:00)
--- NOTE | 2020-04-04 11:07 | DS ---
Physical Exam: SUBJECTIVE: Patient seen and examined. he denies any abdominal pain, no nausea or vomiting. voiding freely and had a BM today. denies any significant pain. only feels "sore" on surgical sites. He will take tylenol at home as needed. he is ambulating in room. OBJECTIVE: Patient is a 25 year old male with no significant past medical history who comes to the ED on 04/01/2020 with RLQ abd pain that started 04/01/[address] scan shows acute appendicitis with intraluminal appendicolith. s/p appendectomy on 04/03/2020, inflamed appendix found. covid 19 negative. Completed Zosyn, will send home on Augmentin 500mg BID x 5 days. patient f/u with Dr. Pierson as an outpatient. covid status: covid 19 pending. patient is asymptomatic Vital Signs Period Temp Pulse Resp BP Sys/Michel Pulse Ox Last 24 Hr 98 F-98.9 F 59-71 13-20 103-145/50-80 95-100 PHYSICAL EXAM GENERAL: The patient is awake, alert, and fully oriented, in no acute distress. HEAD: Normal with no signs of trauma. EYES: PERRL, extraocular movements intact, sclera anicteric, conjunctiva clear. No ptosis. ENT: Ears normal, nares patent, oropharynx clear without exudates, moist mucous membranes. NECK: Trachea midline, full range of motion, supple. LUNGS: Breath sounds equal, clear to auscultation bilaterally HEART: Regular rate and rhythm ABDOMEN: Soft, nontender, nondistended, normoactive bowel sounds - surgical sites c/d/i EXTREMITIES: 2+ pulses, warm, well-perfused, no edema. NEUROLOGICAL: Normal speech, gait not observed. PSYCH: Normal mood, normal affect. SKIN: Warm, dry, normal turgor, no rashes or lesions noted LABS Laboratory Results - last 24 hr 04/01/20 04/04/20 04/04/20 22:10 07:26 07:26 WBC 9.5 RBC 4.86 Hgb 14.3 Hct 42.0 MCV 86.4 MCH 29.5 MCHC 34.1 RDW 13.9 Plt Count 297 MPV 8.1 Absolute Neuts (auto) 7.5 Neutrophils % 78.2 Lymphocytes % 16.9 Monocytes % 4.8 Eosinophils % 0.0 D Basophils % 0.1 Nucleated RBC % 0 Sodium 139 Potassium 4.0 Chloride 107 Carbon Dioxide 22 Anion Gap 10 BUN 6.8 L Creatinine 0.8 Est GFR (CKD-EPI)AfAm 143.90 Est GFR (CKD-EPI)NonAf 124.16 Random Glucose 76 Calcium 8.9 Magnesium 2.2 Total Bilirubin 1.2 H AST 13 L ALT 20 Alkaline Phosphatase 51 Total Protein 6.4 Albumin 3.4 COVID-19 (TANESHA) Not detected HOSPITAL COURSE: Date of Admission:04/01/20 Date of Discharge: 04/04/20 Minutes to complete discharge: 45 Discharge Summary Problems reviewed: Yes Reason For Visit: APPENDICITIS Current Active Problems Appendicitis (Acute) COVID-19 (Acute) DVT prophylaxis (Acute) Leukocytosis (Acute) RLQ abdominal pain (Acute) Condition: Stable - Instructions Diet, Activity, Other Instructions: Discharge Instructions Post Operative Instructions Physical activity Resume your normal everyday activity as tolerated no heavy lifting or exercise until seen by your surgeon. You may walk unlimited amounts of and climb stairs. You may resume driving the car when you feel safe and comfortable behind the wheel and are no longer taking narcotic medications. Wound care You may shower 2 days after surgery but do not submerge the incisions. Do not a pply lotion or ointments to incisions. Diet There are no dietary restrictions. Eat healthy, high-fiber foods. Drink 6 to 8 glasses of liquid each day. This will assist in keeping your bowels are regular. Pain management You may take Tylenol or acetaminophen or Ibuprofen (for example, Motrin, Advil etc.) Any pain prescription medication ordered should be taken as prescribed for moderate to severe pain. Call Dr. Pierson for any of the following: Severe pain not relieved by medication Fever of 101 or higher Excessive bleeding or drainage on dressing Inability to urinate START taking Augmentin 500mg TWICE per day for 5 more days. If you experience any chest pain or shortness of breath please seek emergency treatment immediately. Call the office a post operative appointment - f/u in 2 weeks [phone] (Dr. Pierson) Referrals: Amber Kessler MD [Primary Care Provider] - Jas Pierson MD [Staff Physician] - Disposition: HOME - Home Medications Comprehensive Discharge Medication List: Ambulatory Orders Amoxicillin/Potassium Clav [Augmentin 500-125 Tablet] 1 each PO BID #10 tablet 04/04/20 Problem List - Problems (1) Appendicitis Assessment/Plan: s/p appendectomy 04/03/2020. outpatient follow up no abominal pain, tolerating diet. no nausea/or vomiting no calf pain, ambulating in room lungs clear, voiding freely and had BM today Code(s): K37 - UNSPECIFIED APPENDICITIS (2) RLQ abdominal pain Assessment/Plan: resolved Code(s): R10.31 - RIGHT LOWER QUADRANT PAIN (3) COVID-19 Assessment/Plan: negative Code(s): U07.1 - COVID POSITIVE (4) DVT prophylaxis Assessment/Plan: Code(s): Z29.9 - ENCOUNTER FOR PROPHYLACTIC MEASURES, UNSPECIFIED (5) Leukocytosis Assessment/Plan: resolved Code(s): D72.829 - ELEVATED WHITE BLOOD CELL COUNT, UNSPECIFIED This patient is new to me today: No Emergency Visit: Yes Care time: The patient presented to the Emergency Department on the above date and was hospitalized for further evaluation of their emergent condition. Critical Care patient: No - Discharge Referral Referred to [facility] No
--- NOTE | 2020-04-04 11:18 | PN ---
Progress Note, Physician History of Present Illness: stable no complaints intraop findings noted - Current Medication List Current Medications: Active Medications Piperacillin Sod/Tazobactam (Sod 3.375 gm/ Dextrose) 50 mls @ 100 mls/hr IVPB Q8H-IV RAF; Protocol Last Admin: 04/04/20 09:40 Dose: 100 mls/hr Documented by: Sodium Chloride (Normal Saline -) 1,000 mls @ 75 mls/hr IV ASDIR RAF Last Admin: 04/04/20 03:05 Dose: 75 mls/hr Documented by: Morphine Sulfate (Morphine Sulfate) 8 mg IVPB Q3H PRN PRN Reason: PAIN LEVEL 7 - 10 Ondansetron HCl (Zofran Injection) 4 mg IVPUSH Q4H PRN PRN Reason: NAUSEA AND/OR VOMITING Oxycodone HCl (Roxicodone -) 7.5 mg PO Q4H PRN PRN Reason: PAIN LEVEL 4 - 6 Last Admin: 04/03/20 20:18 Dose: 7.5 mg Documented by: Pantoprazole Sodium (Protonix Iv) 40 mg IVPUSH DAILY [facility] Last Admin: 04/04/20 09:40 Dose: 40 mg Documented by: - Objective Vital Signs: Vital Signs Temperature 98.4 F 04/04/20 05:00 Pulse Rate 65 04/04/20 05:00 Respiratory Rate 18 04/04/20 05:00 Blood Pressure 115/50 L 04/04/20 05:00 O2 Sat by Pulse Oximetry (%) 97 04/04/20 01:00 Constitutional: Yes: No Distress, Calm Cardiovascular: Yes: S1, S2 Respiratory: Yes: Regular, CTA Bilaterally Gastrointestinal: Yes: Soft, Hypoactive Bowel Sounds Musculoskeletal: Yes: WNL Extremities: Yes: WNL Wound/Incision: Yes: Clean/Dry Neurological: Yes: Alert, Oriented Psychiatric: Yes: Alert, Oriented Labs: CBC, BMP 04/04/20 07:26 04/04/20 07:26 INR, PTT INR 1.03 (0.83-1.09) 04/02/20 06:35 Assessment/Plan Problem List - Problems (1) Appendicitis Code(s): K37 - UNSPECIFIED APPENDICITIS (2) RLQ abdominal pain Code(s): R10.31 - RIGHT LOWER QUADRANT PAIN (3) COVID-19 Code(s): U07.1 - COVID POSITIVE (5) Leukocytosis Code(s): D72.829 - ELEVATED WHITE BLOOD CELL COUNT, UNSPECIFIED post op stable can change to oral augmentin for couple of days
[2020-04-04 12:05] VITALS: BP 125/68; PULSE 92; TEMP 98.8
--- NOTE | 2020-04-04 12:12 | PN ---
Progress Note (short form) - Note Progress Note: surgery pt seen and examined. feels well. tolerating diet, ambulating, and voiding. afebrile abd- soft, nt, nd, incisions clean Plan- surgically stable for d/c. no abx or narcotics. f/u in 2 weeks. [phone] ok to shower, regular diet, no lifting,
--- NOTE | 2020-04-04 15:00 | OP ---
DATE OF OPERATION: 04/03/2020 PREOPERATIVE DIAGNOSIS: Acute appendicitis. POSTOPERATIVE DIAGNOSIS: Acute appendicitis. PROCEDURE: Laparoscopic appendectomy, lavage. SURGEON: Jas Pierson DO ECONOMIC DEVELOPER: None. ANESTHESIOLOGIST: Vi Tovar MD SPECIMEN: Appendix. BLOOD LOSS: Minimal. DRAINS: None. DISPOSITION: Recovery room in stable condition. BRIEF HISTORY: This is a 25-year-old male who was admitted to [facility] with acute appendicitis. He was treated medically with good success, awaiting return of his COVID test. Once it was back and negative, he proceeds now for surgery. DESCRIPTION OF PROCEDURE: The patient was placed in a supine position. After general anesthesia was initiated, the abdomen was prepped and draped in sterile fashion. The patient was already on Zosyn antibiotic. Next, a supraumbilical incision was made with scalpel, used to go through skin and subcutaneous tissue. The fascia was lifted with a Diego clamp and incised vertically. The peritoneum was entered bluntly. A 0 Vicryl stitch was placed across the fascial defect and used to secure the Edyta trocar. Pneumoperitoneum was then created, followed by insertion of a 5-mm 30-degree laparoscope. Two 5-mm trocars were placed, one suprapubic, one left lower quadrant. Attention was turned towards the right lower quadrant and the appendix was seen. It was thick and inflamed at its tip and nonperforated. A window was made in the space. The LigaSure device was used to divide the mesoappendix with multiple welds. The ASH purple load 45-mm stapler was used to divide the appendix at its base in 1 firing. The staple line was inspected. It was intact. There was no bleeding, no breaks, no sign of ischemia. The appendix was placed in a specimen bag, removed through the supraumbilical trocar site and sent to pathology marked as specimen. Limited lavage was done. All return was clear. Trocars were removed under direct visualization. The fascia of the supraumbilical trocar site was closed with multiple interrupted 0 Vicryl sutures. The 3 skin incisions were closed with Biosyn. Dermabond dressing was placed. Overall, the patient tolerated the procedure well. There were no complications. Gonzalez catheter placed at the beginning of the operation was removed at the end. DO GIGI DYE/[id number] JOSH
--- NOTE | 2020-04-07 17:21 | PATH ---
Surgical Pathology Report Patient Name: CAPRI STALLINGS Med. Rec. #: [id number] /Age/Gender: 1995 (Age: 25) / M Account: <[id number]> Location: [facility] Taken: 04/03/2020 Received: 04/04/2020 Reported: 04/07/2020 Physicians: Alec Magallon F.N.P. Specimen(s) Received APPENDIX Clinical History Appendicitis Final Diagnosis APPENDIX, APPENDECTOMY: ACUTE APPENDICITIS AND PERIAPPENDICITIS. Electronically Signed Magi Cid M.D. Gross Description Received in formalin, labeled "appendix," is a 6 cm. in length vermiform appendix with a stapled margin of resection and moderate attached fat. The serosa is puente-smith and smooth. Sectioning reveals a mostly unremarkable lumen with a small focus of hemorrhage. The wall of the appendix averages 0.1 cm. in thickness. [employer] sections are submitted in one cassette. /04/04/2020 [facility]04/04/2020
== END 2020-04-04 13:08 | disposition home or self-care (01) ==
LOC: JER 18:03 → INTOOBSV 22:41 → JASUSAT 22:41 → UNDOADMOB 22:41 → JERBED 22:41 → J7W 23:38 → JASUSAT 23:38 → UNDOADMOB 04-02 09:25 → J7W 04-02 09:25 → JERBED 04-02 09:25 → JASUSAT 04-04 13:08
PROVIDERS: ATTEND Nurse Practitioner Family
PROC: 0DTJ4ZZ Resection of Appendix, Percutaneous Endoscopic Approach (ICD-10-PCS; principal; 2020-04-01)
DX: K35.80 Unspecified acute appendicitis (principal)
CPT/HCPCS: 36415; 74177-TC; 80053; 81003; 83690; 83735; 85025; 85610; 86850; 86900; 86901; 88304-TC; 94760; 99285-25; J0131; Q9967; U0003

== ENCOUNTER 2021-12-28 21:21 | Emergency (ER) | payer OTHER ==
[2021-12-28 21:30] VITALS: BP 118/73; PULSE 76; TEMP 97.4; BMI 30.7
== END 2021-12-29 01:05 | disposition home or self-care (01) ==
LOC: JER 21:21
DX: R19.7 Diarrhea, unspecified (principal)
CPT/HCPCS: 99283-25

== ENCOUNTER 2023-03-21 06:03 | Emergency (ER) | payer OTHER ==
[2023-03-21 06:12] VITALS: BMI 33.5
[2023-03-21] MEDS ORDERED: predniSONE 20 MG TABLET (UD) PO ONE (07:42)
[2023-03-21] MEDS ORDERED: diphenhydrAMINE HCL 12.5 MG/5 ML UNIT-DOSE CUPS PO ONE (07:42)
[2023-03-21] MEDS ORDERED: diphenhydrAMINE HCL 25 MG CAPSULE (FP) PO ONE (08:16)
[2023-03-21] MEDS ORDERED: predniSONE 20 MG TABLET (UD) ONE (08:17)
[2023-03-21 08:58] VITALS: BP 106/71; PULSE 79; RESP 16; TEMP 98
== END 2023-03-21 07:55 | disposition home or self-care (01) ==
LOC: JER 06:03
DX: R21 Rash and other nonspecific skin eruption (principal); L50.9 Urticaria, unspecified
CPT/HCPCS: 99283-25

== ENCOUNTER 2023-05-13 15:31 | Emergency (ER) | payer OTHER ==
[2023-05-13 15:47] VITALS: BP 126/75; PULSE 93; RESP 18; TEMP 98; BMI 33.0
[2023-05-13] MEDS ORDERED: KETOROLAC TROMETHAMINE 30 MG/1 ML VIAL IM ONE (15:55)
[2023-05-13] MEDS ORDERED: KETOROLAC TROMETHAMINE 30 MG/1 ML VIAL ONE (15:58)
== END 2023-05-13 16:42 | disposition home or self-care (01) ==
LOC: JERFT 15:31
PROC: 3E0233Z Introduction of Anti-inflammatory into Muscle, Percutaneous Approach (ICD-10-PCS; principal; 2023-05-13)
DX: S50.311A Abrasion of right elbow, initial encounter (principal); M25.551 Pain in right hip; M54.50 Low back pain, unspecified; M25.511 Pain in right shoulder
CPT/HCPCS: 72100-TC-FY; 72170-TC-FY; 73030-TC-RT-FY; 73502-TC-RT-FY; 99284-25